=== PATIENT | male | born 1955 | race Caucasian/White ===

== ENCOUNTER 2018-05-21 14:53 | Inpatient (IN) | payer MEDICARE ==
[~2018-05-21 14:53] MED LIST: Adacel (T-DAP) 0.5 ML SYRINGE ONE; Lidocaine 1% (PF) 30 ML VIAL ONE
[2018-05-21 15:55] LABS: PTT 23.2 SEC (22.9-36.1); Prothrombin Time 13.5 SEC (12.0-14.7)
[2018-05-21 17:54] VITALS: BMI 26.4
[2018-05-21] MEDS ORDERED: Ondansetron PF 4 MG/2 ML Vial IVP PRN (17:59)
[2018-05-21] MEDS ORDERED: Labetalol HCl 100 MG/20 ML VIAL SLOW IVP PRN (17:59)
[2018-05-21] MEDS ORDERED: Acetaminophen 325 MG TAB PO PRN (17:59)
[2018-05-21] MEDS ORDERED: Bisacodyl 10 MG SUPP PR PRN (17:59)
[2018-05-21] MEDS ORDERED: Docusate 100 MG CAP PO PRN (17:59)
[2018-05-21] MEDS ORDERED: Mag-Al 1200 mg/1200 mg/30 ML UDCUP PO PRN (17:59)
[2018-05-21] MEDS ORDERED: Milk Of Magnesia 30 ML UDCUP PO PRN (17:59)
[2018-05-21] MEDS: Dextromethorphan Hbr/Quinidine CAPSULE PO SCH (20:57)
[2018-05-21] MEDS ORDERED: Rosuvastatin 20 MG TAB PO SCH (21:00)
--- NOTE | 2018-05-21 22:27 | CT ---
CT BRAIN 05/21/18 PROVIDED CLINICAL HISTORY: Subdural hematoma. FINDINGS: Comparison is made with the examination performed earlier same date. The ventricular system is unchan ged in size and morphology. The previously described extra-axial blood products about the anterior as pect of the right temporal lobe is less apparent on the current study. No additional intracranial hem orrhage is evident. Right frontal scalp swelling is again seen. There is no evidence for fracture. IMPRESSION: No interval detrimental change. POS: MARISSA
--- NOTE | 2018-05-22 01:39 | HP ---
HISTORY OF PRESENT ILLNESS: Mr. Coates is a 63-year-old male with significant history of frontotemporal dementia, who fell at home which was unseen and the patient does not know exactly what happened. Per ER report, the patient fell from tripping and hit head on a glass table with bottles of perfume. The patient has a laceration on the right side of his forehead, which had 9 sutures placed at previous ER. The patient was at the [facility] Emergency Department and CT showed a small subdural hematoma. The patient is on Plavix and aspirin, and was transferred to [facility]. I am seeing the patient in his hospital room. He is resting comfortably. He complains of a dull headache and that he has to use the restroom. The patient is moving all 4 extremities well. His speech is spontaneous and fluent. He is alert and oriented to person, place, and time. REVIEW OF SYSTEMS: A 10-point review of systems has been completed and is negative other than stated in the above HPI. PAST MEDICAL HISTORY: Frontotemporal dementia, history of 2 heart stents placed approximately 15 years ago, hyperlipidemia. PAST SURGICAL HISTORY: The patient denies any surgical history. ALLERGIES: NO KNOWN DRUG ALLERGIES. SOCIAL HISTORY: The patient denies alcohol use. Denies drug use. Does not have smoking history. Lives at home with his in [place], next to his 's sisters. They have lived there for 5 years. CURRENT MEDICATIONS: 1. Aspirin. 2. Namenda XR. 3. Plavix. 4. Crestor. 5. Nuedexta. 6. CoQ10. 7. Fish oil. 8. Sertraline. PHYSICAL EXAMINATION: VITAL SIGNS: Temperature 99, heart rate 82, respirations 12, O2 saturation 97% on room air, and blood pressure 137/99. CONSTITUTION: The patient is alert and oriented. He does have a little bit of blood here and there on him that is dried from the laceration on his head. He is alert and oriented to person, place, and time. Does not appear to be in any visible distress. HEENT: Head is normocephalic. There is a laceration and small scalp hematoma, which has been sutured on the right forehead. His pupils are equal, round, and reactive to light. Extraocular movements are intact. Hearing is intact. Moist mucous membranes. RESPIRATIONS: Normal work of breathing on room air. CARDIAC: Regular rate and rhythm. Normal S1 and S2. EXTREMITIES: The patient is moving upper extremities and lower extremities well. There are no motor deficits. 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 No sensory deficits noted. NEUROLOGIC: The patient is alert and oriented to person, place, and time. Speech is normal spontaneous and fluent. GCS of 15. There are no focal motor or sensory deficits. Cranial nerves 2 through 12 are tested and intact. IMAGING: CT head shows a very small right-sided subdural hematoma anterior to the temporal lobe. CT cervical spine showed no fractures. ASSESSMENT AND PLAN: The patient has a very small subdural hematoma, however, he is on Plavix and aspirin. We would like to obtain a repeat CT of the head in approximately 4 hours following his first one and again tomorrow morning. We will maintain his blood pressure below 150. Monitor his neurologic status every 2 hours to keep him comfortable and will re-evaluate in the morning. No blood thinners, including aspirin and fish oil for at least 2 weeks. Job ID: [id number] [facility] [place]
[2018-05-22] MEDS: Dextromethorphan Hbr/Quinidine CAPSULE PO SCH (08:23)
--- NOTE | 2018-05-22 08:49 | CT ---
PRELIMINARY REPORT/[facility]/EMERGENTY AFTER-HOURS PROCEDURE CT Head Without Contrast EXAM DATE/TIME: 05/22/2018 4:37 AM CLINICAL HISTORY: 63 years old, male; Condition or disease; Other: Sdh; Patient HX: F/u sdh TECHNIQUE: Axial computed tomography images of the head/brain without contrast. COMPARISON: CT Brain WO Con 05/21/2018 9:35 PM FINDINGS: Brain: Volume loss and chronic small vessel ischemic change. No brain edema. No intracranial hemorrha ge. Ventricles: Normal. No ventriculomegaly. Bones/joints: Normal. No acute fracture. Sinuses: Normal as visualized. No acute sinusitis. Mastoid air cells: Normal as visualized. No mastoid effusion. Soft tissues: Normal. IMPRESSION: No acute brain findings. Thank you for allowing us to participate in the care of your patient. Dictated and Authenticated by: Irwin Pineda MD 05/22/2018 5:11 AM Central Time ([place] & [place]) FINAL REPORT HEAD CT WITHOUT CONTRAST: Date: 05/22/18 COMPARISON: 05/21/18. HISTORY: Re-evaluate possible subdural hematoma. FINDINGS: I am in agreement with the preliminary report issued by [facility]. Imaged paranasal sinuses/mastoid air ce lls are grossly unremarkable. No displaced calvarial fracture is seen. No intracranial hemorrhage, midline shift, mass effect, or ventricular enlargement. IMPRESSION: No intracranial hemorrhage is evident on this examination. POS: KYLIE
[2018-05-22] MEDS ORDERED: Ubidecarenone 50 MG CAP PO SCH (09:00)
--- NOTE | 2018-05-22 09:18 | PRG ---
DATE OF SERVICE: 05/22/2018 NEUROSURGERY PROGRESS NOTE SUBJECTIVE: I saw Omar Coates in this hospital room this morning. I have personally examined him, spoke with his , reviewed imaging and records, and agreed with documentation of Ely Anthony PA-C, dated 05/21/2018. 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 He continues to take aspirin and fish oil as well. He took a fall yesterday in his bedroom and suffered a scalp laceration. CT examination of the brain reveals a small subdural hematoma at the lateral aspect over the temporal lobe on the right side without any mass effect whatsoever. The maximal thickness was about 1 to [address] image was done yesterday afternoon and this morning showing no increase in size. I saw Mr. Coates, he was resting comfortably in our intermediate care unit. His is at his bedside. He has been neurologically intact since his admission. He answers questions appropriately, but loses track of his conversation and loses some words. His memory of the event yesterday is cloudy. I do not find any cranial neuropathies or lateralized motor or sensory deficits, however. I have reviewed the imaging and the findings are as above. There is no increase in the size of the subdural hematoma. Mr. Coates is going to remain off aspirin, fish oil, and Plavix for two weeks. We will get a CAT scan in the 10 day to 2 week range and we will have him establish with a local facility supervisor to decide whether he ever needs to be on Plavix again, I hope not. Job ID: [id number]
[2018-05-22 12:53] VITALS: TEMP 98.6
[2018-05-22 15:05] VITALS: BP 118/81
--- NOTE | 2018-05-23 21:59 | EKG ---
Test Reason : Blood Pressure : / mmHG Vent. Rate : 076 BPM Atrial Rate : 076 BPM P-R Int : 152 ms QRS Dur : 080 ms QT Int : 368 ms P-R-T Axes : 018 005 018 degrees QTc Int : 414 ms Normal sinus rhythm Cannot rule out Anterior infarct , age undetermined Abnormal ECG Confirmed by IM COATES DO ([id number]), order editor FUENTES BREWSTER ([id number]) on 05/23/2018 9:59:05 PM Referred By: Confirmed By:MI COATES DO
== END 2018-05-22 15:32 | disposition home or self-care (01) | DRG 87 ==
LOC: ERS 14:53 → IMCU/EMU 15:48
PROVIDERS: ADMIT Neurological Surgery; ATTEND Neurological Surgery
DX: S06.5X0A Traumatic subdural hemorrhage without loss of consciousness, initial encounter (principal); E78.5 Hyperlipidemia, unspecified; R40.2413 Glasgow coma scale score 13-15, at hospital admission; F03.90 Unspecified dementia, unspecified severity, without behavioral disturbance, psychotic disturbance, mood disturbance, and anxiety; W01.110A Fall on same level from slipping, tripping and stumbling with subsequent striking against sharp glass, initial encounter; Y92.009 Unspecified place in unspecified non-institutional (private) residence as the place of occurrence of the external cause; Z98.61 Coronary angioplasty status; Z79.82 Long term (current) use of aspirin; Z79.899 Other long term (current) drug therapy
CPT/HCPCS: 36415; 70450; 84484; 85610; 85730; 90715; 93005; J2001

== ENCOUNTER 2018-06-09 12:58 | Outpatient (CLI) | payer MEDICARE ==
--- NOTE | 2018-06-09 15:08 | CT ---
CT BRAIN NONCONTRAST: DATE: 06-09-17 HISTORY: 63-year-old male follow up traumatic subdural hematoma. COMPARISON: 05-21-18 FINDINGS: There is no midline shift or any other mass effect. There is no evidence of acute intracranial hemor rhage, large cortical infarct, obstructive hydrocephalus, or extraaxial fluid collection. The calvar ium is intact. The previously described subtle, thin layer of hyperdensity along the lateral aspect o f the right middle cranial fossa, probably representing a tiny subdural hematoma, is not visualized o n the current study. The previously demonstrated mild right temporal scalp contusion has also resolve d. IMPRESSION: No acute intracranial findings. jn POS: TPC
== END 2018-06-09 12:59 | disposition home or self-care (01) ==
LOC: TBSIIMAG 12:58
PROVIDERS: ATTEND Neurological Surgery
DX: S06.5X0A Traumatic subdural hemorrhage without loss of consciousness, initial encounter (principal)
CPT/HCPCS: 70450